=== PATIENT | female | born 1965 | race Caucasian/White ===

== ENCOUNTER 2016-07-07 13:19 | Emergency (ER) | payer SELFPAY ==
[~2016-07-07] VITALS: Ht 152.4 cm; Wt 86.2 kg
[2016-07-07 13:27] VITALS: BP 211/143
--- NOTE | 2016-07-07 13:35 | NUR ---
Patient being evaluated by DR MAZA at bedside.
[2016-07-07] MEDS ORDERED: ACETAMIN/CODEINE 120/12MG-5ML 5 ML UDC PO ONE (13:45)
[2016-07-07] MEDS ORDERED: LIDOCAINE 1% 500 MG/50 ML VIAL INJ ONE (13:45)
--- NOTE | 2016-07-07 14:01 | NUR ---
PT CAME TO ER DUE TO RIGHT KNEE LACERATION W/ PAIN SCALE OF 7/10. PT DENIES SOB/CP/N/V. PT AAOX4. HAS A HX OF ASTHMA AND HTN. PT DID NOT TAKE ANY MEDICATION. NO ACUTE DISTRESS NOTED AT THIS TIME.HOB ELEVATED, SAFETY PRECAUTION INSTITUTED. NEEDS ATTENEDED.
[2016-07-07] MEDS ORDERED: BACITRACIN OINT 500 UNITS/GM PKT TP ONE ×2 (15:11→15:20)
--- NOTE | 2016-07-07 15:46 | NUR ---
DR LINK OWEN TO DISCHARGE PT.
--- NOTE | 2016-07-07 15:46 | NUR ---
Patient discharged with v/s stable. Written and verbal after care instructions given and explained. Patient alert, oriented and verbalized understanding of instructions. Ambulatory with steady gait. All questions addressed prior to discharge. ID band removed. Patient advised to follow up with PMD. Rx of MOTRIN given. Patient educated on indication of medication including possible reaction and side effects. Opportunity to ask questions provided and answered.ENCOURAGED TO EAT NUTRICIOUS FOOD AND INCREASED FLUID INTAKE AND PT AGREED TO IT.
--- NOTE | 2016-07-07 15:46 | NUR ---
PT AAO.BP OF 160/100. DR MAZA MADE AWARE.
[2016-07-07 15:48] VITALS: BP 150/100
== END 2016-07-07 16:59 | disposition home or self-care (01) ==
LOC: MED 13:19
DX: S81.011A Laceration without foreign body, right knee, initial encounter (principal); I10 Essential (primary) hypertension; J45.909 Unspecified asthma, uncomplicated; W01.0XXA Fall on same level from slipping, tripping and stumbling without subsequent striking against object, initial encounter; Y93.89 Activity, other specified; Y92.89 Other specified places as the place of occurrence of the external cause; Y99.8 Other external cause status
CPT/HCPCS: 12002; 73562; 90471; 90715; 99284; J2001; Q0092

== ENCOUNTER 2016-07-09 10:48 | Emergency (ER) | payer SELFPAY ==
[~2016-07-09] VITALS: Ht 154.9 cm; Wt 87.1 kg
[2016-07-09 11:04] VITALS: BP 160/98
--- NOTE | 2016-07-09 11:05 | NUR ---
PT EVALUATED IN OF BY DR SAINI. PATIENT PRESENTS TO ED WITH RIGHT KNEE LACERATION WITH SUTURES INTACT (PLACED BY DR MAZA ON Sunday07/07/16) WITH KNEE IMMOBILIZER . DENIES N/V/D; SKIN IS PINK/WARM/DRY; AAOX4 WITH EVEN AND STEADY GAIT; LUNGS CLEAR BL; HR EVEN AND REGULAR; PT DENIES ANY FEVER, CP, SOB, OR COUGH AT THIS TIME; PATIENT STATES PAIN OF 0/10 AT THIS TIME; VSS.
[2016-07-09 11:28] VITALS: BP 160/98
--- NOTE | 2016-07-09 11:31 | NUR ---
Patient discharged with v/s stable. Written and verbal after care instructions given and explained. PER DR SAINI, PT IS TO RETURN IN 7 DAYS FOR RECHECK. Patient verbalized understanding. Ambulatory with standby assistance. All questions addressed prior to discharge. Advised to follow up with PMD.
== END 2016-07-09 11:31 | disposition home or self-care (01) ==
LOC: MED 10:50
DX: S81.011D Laceration without foreign body, right knee, subsequent encounter (principal); I10 Essential (primary) hypertension; Z88.0 Allergy status to penicillin; Z88.6 Allergy status to analgesic agent; W01.0XXD Fall on same level from slipping, tripping and stumbling without subsequent striking against object, subsequent encounter; Y92.89 Other specified places as the place of occurrence of the external cause; Y99.8 Other external cause status; J45.909 Unspecified asthma, uncomplicated

== ENCOUNTER 2016-07-21 11:09 | Emergency (ER) | payer SELFPAY ==
[~2016-07-21] VITALS: Ht 154.9 cm; Wt 82.6 kg
[2016-07-21 11:23] VITALS: BP 160/107
[2016-07-21] MEDS ORDERED: UNKNOWN BP MED PO (11:25)
--- NOTE | 2016-07-21 11:45 | NUR ---
PT AMBULATED TO ER BED 07.
--- NOTE | 2016-07-21 11:50 | NUR ---
PATIENT PRESENTS TO ED TO RECHECK WOUND TO RIGHT KNEE; DENIES N/V/D; SKIN IS PINK/WARM/DRY; AAOX4 WITH EVEN AND STEADY GAIT; LUNGS CLEAR BL; HR EVEN AND REGULAR; PT DENIES ANY FEVER, CP, SOB, OR COUGH AT THIS TIME; PATIENT STATES PAIN OF 0/10 AT THIS TIME; VSS; PATIENT POSITIONED FOR COMFORT; HOB ELEVATED; BEDRAILS UP X2; BED DOWN. ER MD MADE AWARE OF PT STATUS.
[2016-07-21 12:35] VITALS: BP 148/88
--- NOTE | 2016-07-21 12:35 | NUR ---
Patient discharged with v/s stable. Written and verbal after care instructions given and explained. Patient verbalized understanding. Ambulatory with steady gait. All questions addressed prior to discharge. Advised to follow up with PMD.
== END 2016-07-21 12:35 | disposition home or self-care (01) ==
LOC: MED 11:16
DX: S81.011D Laceration without foreign body, right knee, subsequent encounter (principal); J45.909 Unspecified asthma, uncomplicated; I10 Essential (primary) hypertension; Z88.0 Allergy status to penicillin; Z88.6 Allergy status to analgesic agent; W19.XXXD Unspecified fall, subsequent encounter; Y92.89 Other specified places as the place of occurrence of the external cause; Y99.8 Other external cause status